=== PATIENT | male | born 1985 | race Caucasian/White ===

== ENCOUNTER 2018-06-17 06:24 | Emergency (ER) | payer BC, SELFPAY ==
[2018-06-17 06:25] VITALS: BP 189/89; PULSE 92; RESP 18; TEMP 36.7; O2SAT 95; BMI 59.9
--- NOTE | 2018-06-17 07:55 | ED.VISSUMM ---
- ER Visit Summary Date of Service: 06/17/18 Chief Complaint: Left eye pain History of Present Illness: The patient is a 32 M with left eye pain for 2 days. The patient has noted watering and mild photophobia. It feels like his eye is scratched. He denies any trauma or foreign bodies. No history of this in the past. No fever or systemic symptoms. No rash noted. He also reports left forearm pain which is worse with carrying. No history of blood clots. Physical Examination: Hypertensive but otherwise vitals unremarkable. Patient sitting in a dark room. HEENT exam grossly unremarkable to inspection. Extraocular structures normal. Pupils round and reactive. Extraocular motion normal. Diffuse conjunctival injection on the left. Mild watering and pus. Skin normal. Left forearm diffusely tender to palpation. Neurovascular intact distally. Good range of motion. Test Results: Emergency Department Course and Treatment: Tetracaine and fluorescein applied to the left eye. Patient had improvement in his pain. Lids everted. No foreign bodies appreciated. Patient has a central corneal abrasion. No dendritic lesions. No other pertinent findings. Treatment Plan: Patient will be treated with E-Mycin ophthalmic ointment. Referred to ophthalmology for follow-up tomorrow. Return if unable to follow-up or any new or worsening issues. I believe his left forearm pain is tendinitis. Nothing to suggest fracture, clot, or more severe pathology. Naproxen as needed for pain. Follow-up with primary care. Also follow-up with primary care for hypertension. He was given a referral. Disposition: Discharged Impression: 1. Left eye pain 2. Hypertension This note was generated with [employer] dictation software. It may contain incorrect words, spelling, and punctuation that were not noted in review of the chart prior to signing ED Disposition - Plan for ED Patient: Chief Complaint: Eye Problem Referrals: Care Physician,No Primary [Primary Care Provider] -
--- NOTE | 2018-06-17 07:59 | ED.DCSUM_ITS ---
- ER Visit Summary Date of Service: 06/17/18 Chief Complaint: Left eye pain History of Present Illness: The patient is a 32 M with left eye pain for 2 days. The patient has noted watering and mild photophobia. It feels like his eye is scratched. He denies any trauma or foreign bodies. No history of this in the past. No fever or systemic symptoms. No rash noted. He also reports left forearm pain which is worse with carrying. No history of blood clots. Physical Examination: Hypertensive but otherwise vitals unremarkable. Patient sitting in a dark room. HEENT exam grossly unremarkable to inspection. Extraocular structures normal. Pupils round and reactive. Extraocular motion normal. Diffuse conjunctival injection on the left. Mild watering and pus. Skin normal. Left forearm diffusely tender to palpation. Neurovascular intact distally. Good range of motion. Test Results: Emergency Department Course and Treatment: Tetracaine and fluorescein applied to the left eye. Patient had improvement in his pain. Lids everted. No foreign bodies appreciated. Patient has a central corneal abrasion. No dendritic lesions. No other pertinent findings. Treatment Plan: Patient will be treated with E-Mycin ophthalmic ointment. Referred to ophthalmology for follow-up tomorrow. Return if unable to follow- up or any new or worsening issues. I believe his left forearm pain is tendinitis. Nothing to suggest fracture, clot, or more severe pathology. Naproxen as needed for pain. Follow-up with primary care. Also follow-up with primary care for hypertension. He was given a referral. Disposition: Discharged Impression: 1. Left eye pain 2. Hypertension This note was generated with [employer] dictation software. It may contain incorrect words, spelling, and punctuation that were not noted in review of the chart prior to signing ED Disposition - Plan for ED Patient: Chief Complaint: Eye Problem Referrals: Care Physician,No Primary [Primary Care Provider] -
--- NOTE | 2018-06-17 07:59 | ED.DEP ---
ED Disposition - Plan for ED Patient: Chief Complaint: Eye Problem Instructions: Corneal Injury Referrals: Luis Lubin MD [STAFF PHYSICIAN] - As soon as possible Salas Guerra MD [STAFF PHYSICIAN] -
[2018-06-17] MEDS: Erythromycin Base 1 OPTH.TUBE 1 APPLIC LEFT EYE (08:05)
[2018-06-17 08:07] VITALS: PULSE 84; RESP 18; O2SAT 92
== END 2018-06-17 08:08 | disposition home or self-care (01) ==
LOC: ED 07:45
PROVIDERS: Emergency Provider Emergency Medicine
DX: H57.12 Ocular pain, left eye (principal); I10 Essential (primary) hypertension; M79.632 Pain in left forearm; S05.02XA Injury of conjunctiva and corneal abrasion without foreign body, left eye, initial encounter; X58.XXXA Exposure to other specified factors, initial encounter; Y93.9 Activity, unspecified; Y92.9 Unspecified place or not applicable; J45.909 Unspecified asthma, uncomplicated
CPT/HCPCS: 99283

== ENCOUNTER 2018-08-14 06:59 | Observation (INO) | payer BC, SELFPAY ==
[2018-08-14] VITALS (12 sets, daily range): BP systolic 146–173; BP diastolic 63–90; PULSE 91–109; RESP 16–32; TEMP 36.6–37.2; O2SAT 90–100; BMI 61.3; BMI 60.9
--- NOTE | 2018-08-14 07:13 | RAD_ITS ---
STUDY: X-RAY CHEST REASON FOR EXAM: Male, 32 years old. Chest pain, shortness of breath and cough. TECHNIQUE: Single AP portable view of the chest. COMPARISON: Comparison is made with prior study dated August 20, 2017. FINDINGS: EKG electrodes are seen. The lungs are clear and expanded. There is no demonstrated pleural abnormality. Normal size heart. Normal mediastinum and kenneth. Normal visualized pulmonary arteries. Normal visualized aortic arch and descending thoracic aorta. Normal visualized thoracic spine. Normal visualized ribs, clavicles, and shoulders. There is no demonstrated abnormality of the visualized soft tissue structures of the upper abdomen. RAD/Chest 1 View (Portable) IMPRESSION: Normal x-ray examination of the chest. Electronically Signed: Ki Kingsley MD at 8:56 EST Tel [phone], Service support ,
--- NOTE | 2018-08-14 07:13 | EKG12_ITS ---
Test Reason : COUGH Blood Pressure : / mmHG Vent. Rate : 095 BPM Atrial Rate : 095 BPM P-R Int : 168 ms QRS Dur : 096 ms QT Int : 366 ms P-R-T Axes : 065 107 040 degrees QTc Int : 459 ms Normal sinus rhythm Rightward axis Borderline ECG Confirmed by KYLE NARAYAN, ABRAHAM ([id number]), newspaper photo editor FLAVIO BRANDT ([id number]) on 08/16/2018 3:21:28 PM Referred By: PATRICK Confirmed By:ABRAHAM WRIGHT MD
--- NOTE | 2018-08-14 07:16 | ED.VISSUMM ---
- ER Visit Summary Date of Service: 08/14/18 Chief Complaint: Not feeling well History of Present Illness: The patient is a 32 M with the gradual worsening of his symptoms over the last 5 days. He has shortness of breath, cough, chest pain, looks pale, reports body aches, subjective fever, and feels like he might pass out. He has never felt this way before. He is taking [id number] remedies with minimal relief. Reports a history of asthma. Denies any history of ACS, PE, or aortic pathology. Non-smoker. Physical Examination: Afebrile. Heart rate 106 and respiratory rate 26. 91% on room air. BMI 61.3. Appears unwell but not toxic or in distress. HEENT exam unremarkable. Heart tachycardic but regular. Wheezing in all bailey with expiration. Extremities nontender with no edema. Skin normal in color without rash. Alert and oriented. Moves all extremities. Normal ambulation. Test Results: EKG, labs, and chest x-ray pending. Emergency Department Course and Treatment: Patient was placed on a monitor. Nasal cannula oxygen and IV placed. He was treated with Solu-Medrol and nebulizer treatments while awaiting results. White count 14, potassium 3.4, glucose 110, troponin normal. Chest x-ray shows a normal exam. Patient ambulated on room air. He was feeling better after his breathing treatment but he was 86% on room air and his heart rate was 113. Because of his hypoxia, I called the hospitalist to admit. Treatment Plan: As above Disposition: Admission to [facility] Impression: 1. Asthma exacerbation 2. hypoxia This note was generated with [employer] dictation software. It may contain incorrect words, spelling, and punctuation that were not noted in review of the chart prior to signing ED Disposition - Plan for ED Patient: Chief Complaint: Cough Referrals: Care Physician,No Primary [Primary Care Provider] -
[2018-08-14] MEDS: Albuterol 2.5 MG/3 ML VIAL.NEB. INHALATION ×2 (07:33→13:15)
[2018-08-14] MEDS: Ipratropium/Albuterol Sulfate 3 ML AMPUL.NEB INHALATION (07:34)
[2018-08-14] MEDS: 0.9% Normal Saline 1,000 ML 1000 ML IV (07:42)
[2018-08-14] MEDS: MethylPREDNISolone 125 MG/2 ML Vial IV (07:42)
[2018-08-14 07:48] LABS: Absolute Lymphocyte Count 2.38 X10^3/ul (0.83-4.51); Absolute Neutrophil Count 9.8 X10^3/uL (2.0-7.7); Basophil# 0.03 X10^3/uL; Basophil% 0.2 % (0-1); Eosinophil# 0.63 X10^3/uL; Eosinophils% 4.5 % (0-5); Hematocrit 42.3 % (40-54); Hemoglobin 13.1 g/dl (13.0-16.5); Lymphocyte # 2.38 X10^3/ul (4.0); Mean Corpuscular Hgb 24.3 pg (27.0-32.0); Mean Corpuscular Volume 78.6 fL (80-94); Mean Platelet Vol. 9.5 fl (6.2-12.0); Monocyte# 1.08 X10^3/uL; Monocyte% 7.7 % (0-10); Neutrophil # 9.83 X10^3/uL (2.7-7.7); Neutrophil % 70.4 % (47-70); Platelet Count 376 K/mm3 (150-450); Red Blood Count 5.38 M/mm3 (4.6-6.2)
[2018-08-14 07:49] LABS: POSITIVE COUNT NO; POSITIVE DIFFERENTIAL NO; POSITIVE MORPHOLOGY NO
[2018-08-14 08:03] LABS: Anion Gap 6 (5-15); BUN 9 mg/dL (7-18); BUN/Creat Ratio 10.4 RATIO (10-20); Calcium,Total 8.5 mg/dL (8.5-10.1); Chloride 101 mmol/L (98-107); Creatinine, Serum 0.87 mg/dL (0.70-1.30); EST Glomerular Filtration Rate 108 mL/min (>60); Est Glom Filt Rate - Afr Amer 131 mL/min (>60); Estimated Creatinine Clearance 107.02 ml/min; Glucose 110 mg/dL (74-106); Potassium 3.4 mmol/L (3.5-5.1); Sodium Level 137 mmol/L (136-145)
--- NOTE | 2018-08-14 09:29 | ED.RN ---
patient ambulated without oxygen and o2 sat dropped to 86-97%. pt also became tachy and heart rate increased to 116
--- NOTE | 2018-08-14 11:04 | PCM.CONS.GEN ---
Reason for Consult Date of Consultation: 08/14/18 Reason for Consultation: Shortness of breath/asthma exacerbation History of Present Illness: The patient is a 32-year-old male, with a history as outlined below, who presented to the emergency department on August 14 with generalized malaise, fatigue, shortness of breath and cough. The patient reports that his symptoms initially began this past Monday. His cough is essentially nonproductive in nature. Shortness of breath has progressively worsened over the last 2-3 days. He is a lifelong non-smoker, but does report that he was initially diagnosed with asthma as a child. He does not currently utilize any inhalers at his baseline, nor does he utilize supplemental oxygen. He does report a history of obstructive sleep apnea, based upon a polysomnogram completed 2-3 years ago. However, the patient currently reports that he is noncompliant with the use of nocturnal PAP therapy. On presentation to the emergency department, the patient was noted to be afebrile and hemodynamically stable. He was initially saturating 91% on room air. Initial laboratory evaluation revealed a mildly elevated white blood cell count of 14,000. Chemistry profile was notable only for a potassium of 3.4. Troponin was negative. Plain film chest x-ray revealed no acute cardiopulmonary process. The patient was noted to have wheezing throughout bilateral lung bailey in the emergency department. Per documentation by the ED, the patient was reportedly hypoxic with ambulating to 86%. The patient received supplemental IV fluid hydration, aerosol treatments and IV steroids. He was subsequently admitted to the medical surgical floor for ongoing management. Past Medical History Allergies Penicillins Allergy (Unknown, Verified 08/14/18 07:00) Unknown Home Medications: Ambulatory Orders Medication Instructions Recorded NK 08/14/18 Naproxen Sodium [Aleve] 220 mg PO Q8H PRN PRN 08/14/18 Smoking Status: Never smoker - *Family History Maternal History Items: No pertinent history Paternal History Items: COPD, Diabetes Review of Systems Constitutional: Reports: Malaise, Fatigue Eyes: Denies: Blurred vision, Double vision HEENT: Reports: Sore Throat Cardiovascular: Reports: Chest Tightness Respiratory: Reports: Cough, Shortness of Breath. Denies: Sputum production Gastrointestinal: Denies: Abdominal Pain, Nausea, Vomiting Genitourinary: Denies: Dysuria Musculoskeletal: Denies: Joint Pain, Joint Tenderness Skin: Denies: Rash, Wounds Neurological: Denies: Numbness, Tingling, Focal weakness Psychiatric: Denies: Anxiety, Depression, Homicidal Ideations, Suicidal Ideations Hematologic/ Lymphatic: Denies: Easy Bruising, Easy Bleeding Patient Problems: Active and Suspected Problems Shortness of breath (Acute) Objective: The patient's most recent lab work, culture data and imaging studies have all been personally reviewed. - Physical Exam General: Alert, Oriented x3, Cooperative, No apparent distress HEENT: Atraumatic, PERRLA, Normocephalic Oral: No Gingival or Mucosal Lesions/ Ulcerations Neck: Supple, No Nodes, Trachea Midline, - - Large neck circumference Lungs: No rhonchi, No wheeze, No rales, Diminished Cardiovascular: Regular rate, Regular Rhythm, Normal S1, Normal S2, No murmurs Abdomen: Bowel Sounds Present, Soft, Non Tender, Obese Extremities: No clubbing, No cyanosis, No edema, Capillary Refill Less than 3 Seconds Skin: No rashes, No breakdown Musculoskeletal: No Tenderness to Palpation of Joints or Extremities, No Muscle Wasting Lymphatic: No Cervical, Supraclavicular, or Inguinal Adenopathy Neurological: Cranial nerves II-XII grossly intact, Neuro grossly intact Psych/Mental Status: Alert and oriented to time, place, person, mood and affect Vital Signs Temp Pulse Resp BP Pulse Ox 37.2 C 91 27 H 156/90 H 100 08/14/18 07:01 08/14/18 10:57 08/14/18 10:57 08/14/18 10:57 08/14/18 10:57 Oxygen Flow Rate (L/min) 3 Oxygen Delivery Method Nasal Cannula Weight: 368 lb 9.806 oz Body Mass Index (BMI) 61.3 Finger Stick Blood Glucose 104 Laboratory Tests Past 24 Hrs 08/14/18 08/14/18 07:36 07:36 WBC 14.0 H RBC 5.38 Hgb 13.1 Hct 42.3 MCV 78.6 L MCH 24.3 L MCHC 31.0 L RDW 15.0 H RDW Differential 43.0 Plt Count 376 MPV 9.5 Immature Gran % (Auto) 0.200 Neut % (Auto) 70.4 H Lymph % (Auto) 17.0 L [place] % (Auto) 7.7 Eos % (Auto) 4.5 Baso % (Auto) 0.2 Absolute Neuts (auto) 9.8 H Absolute Lymphs (auto) 2.38 Total Counted Not Reportable Sodium 137 Potassium 3.4 L Chloride 101 Carbon Dioxide 30.0 Anion Gap 6 BUN 9 Creatinine 0.87 Estim Creat Clear Calc 107.02 Est GFR (MDRD) Af Amer 131 Est GFR (MDRD) Non-Af 108 BUN/Creatinine Ratio 10.4 Glucose 110 H Calcium 8.5 Troponin I < 0.015 Clinical Impression(s) from Imaging Studies Chest X-Ray 08/14/18 07:13 IMPRESSION: Normal x-ray examination of the chest. Electronically Signed: Ki Kingsley MD at 8:56 EST Tel [phone], Service support , Assessment/Plan All Active Problems Shortness of breath (Acute) RECOMMENDATIONS: 1. Continue scheduled bronchodilators. 2. Transition from IV steroids to prednisone 40 mg daily by mouth with plans for 5-day burst. 3. Check respiratory viral panel. 4. Wean supplemental oxygen to maintain saturations at or above 90%. 5. Encourage incentive spirometer use. 6. Mobilize patient prior to consideration for discharge from the hospital. 7. Outpatient pulmonary follow-up is recommended to further optimize the patient's asthma and obstructive sleep apnea. IMPRESSIONS: 1. Acute hypoxic respiratory insufficiency Potentially related to underlying asthma with exacerbation. The patient was reported to be wheezing in the emergency department. However, upon my examination, his lungs were clear bilaterally. He did, nevertheless, report improvement in his dyspnea following the nebulizer treatment. Would plan to check a full respiratory viral panel. Continue scheduled bronchodilators for now. There is no need for IV steroids. Place patient on prednisone 40 mg daily with plans for a 5-day prednisone burst. Wean supplemental oxygen to maintain saturations at or above 90%. Encourage incentive spirometer use. Perform walking oximetry study prior to consideration for discharge from the hospital. The patient should ideally follow up in the pulmonary medicine clinic so that his questionable history of asthma can be further worked up. 2. Known history of obstructive sleep apnea of unknown severity The patient reports that his last polysomnogram was 2-3 years ago. He is currently noncompliant with use of nocturnal Pap therapy. Again, recommend follow-up in the pulmonary medicine clinic so that this issue can be addressed further, and the patient restarted on nocturnal noninvasive positive pressure support. 3. Morbid obesity Complicates care, management, recovery and prognosis. Weight loss through dietary modification and a graded exercise regimen is strongly encouraged. This note was generated with [employer] dictation software. It may contain incorrect words, spelling, and punctuation that were not noted in checking the note before signing. Code Visit Inpatient E&M: 36402 Init Hosp L3
--- NOTE | 2018-08-14 11:08 | CON.PCM_ITS ---
Reason for Consult Date of Consultation: 08/14/18 Reason for Consultation: Shortness of breath/asthma exacerbation History of Present Illness: The patient is a 32-year-old male, with a history as outlined below, who presented to the emergency department on August 14 with generalized malaise, fa tigue, shortness of breath and cough. The patient reports that his symptoms initially began this past Monday. His cough is essentially nonproductive in nature. Shortness of breath has progressively worsened over the last 2-3 days. He is a lifelong non-smoker, but does report that he was initially diagnosed with asthma as a child. He does not currently utilize any inhalers at his baseline, nor does he utilize supplemental oxygen. He does report a history of obstructive sleep apnea, based upon a polysomnogram completed 2-3 years ago. However, the patient currently reports that he is noncompliant with the use of nocturnal PAP therapy. On presentation to the emergency department, the patient was noted to be afebrile and hemodynamically stable. He was initially saturating 91% on room a ir. Initial laboratory evaluation revealed a mildly elevated white blood cell count of 14,000. Chemistry profile was notable only for a potassium of 3.4. Troponin was negative. Plain film chest x-ray revealed no acute cardiopulmonary process. The patient was noted to have wheezing throughout bilateral lung bailey in the emergency department. Per documentation by the ED, the patient was reportedly hypoxic with ambulating to 86%. The patient received supplemental IV fluid hydration, aerosol treatments and IV steroids. He was subsequently admitted to the medical surgical floor for ongoing management. Past Medical History Allergies Penicillins Allergy (Unknown, Verified 08/14/18 07:00) Unknown Home Medications: Ambulatory Orders Medication Instructions Recorded NK 08/14/18 Naproxen Sodium [Aleve] 220 mg PO Q8H PRN PRN 08/14/18 Smoking Status: Never smoker - *Family History Maternal History Items: No pertinent history Paternal History Items: COPD, Diabetes Review of Systems Constitutional: Reports: Malaise, Fatigue Eyes: Denies: Blurred vision, Double vision HEENT: Reports: Sore Throat Cardiovascular: Reports: Chest Tightness Respiratory: Reports: Cough, Shortness of Breath. Denies: Sputum production Gastrointestinal: Denies: Abdominal Pain, Nausea, Vomiting Genitourinary: Denies: Dysuria Musculoskeletal: Denies: Joint Pain, Joint Tenderness Skin: Denies: Rash, Wounds Neurological: Denies: Numbness, Tingling, Focal weakness Psychiatric: Denies: Anxiety, Depression, Homicidal Ideations, Suicidal Ideations Hematologic/ Lymphatic: Denies: Easy Bruising, Easy Bleeding Patient Problems: Active and Suspected Problems Shortness of breath (Acute) Objective: The patient's most recent lab work, culture data and imaging studies have all been personally reviewed. - Physical Exam General: Alert, Oriented x3, Cooperative, No apparent distress HEENT: Atraumatic, PERRLA, Normocephalic Oral: No Gingival or Mucosal Lesions/ Ulcerations Neck: Supple, No Nodes, Trachea Midline, - - Large neck circumference Lungs: No rhonchi, No wheeze, No rales, Diminished Cardiovascular: Regular rate, Regular Rhythm, Normal S1, Normal S2, No murmurs Abdomen: Bowel Sounds Present, Soft, Non Tender, Obese Extremities: No clubbing, No cyanosis, No edema, Capillary Refill Less than 3 Seconds Skin: No rashes, No breakdown Musculoskeletal: No Tenderness to Palpation of Joints or Extremities, No Muscle Wasting Lymphatic: No Cervical, Supraclavicular, or Inguinal Adenopathy Neurological: Cranial nerves II-XII grossly intact, Neuro grossly intact Psych/Mental Status: Alert and oriented to time, place, person, mood and affect Vital Signs Temp Pulse Resp BP Pulse Ox 37.2 C 91 27 H 156/90 H 100 08/14/18 07:01 08/14/18 10:57 08/14/18 10:57 08/14/18 10:57 08/14/18 10:57 Oxygen Flow Rate (L/min) 3 Oxygen Delivery Method Nasal Cannula Weight: 368 lb 9.806 oz Body Mass Index (BMI) 61.3 Finger Stick Blood Glucose 104 Laboratory Tests Past 24 Hrs 08/14/18 08/14/18 07:36 07:36 WBC 14.0 H RBC 5.38 Hgb 13.1 Hct 42.3 MCV 78.6 L MCH 24.3 L MCHC 31.0 L RDW 15.0 H RDW Differential 43.0 Plt Count 376 MPV 9.5 Immature Gran % (Auto) 0.200 Neut % (Auto) 70.4 H Lymph % (Auto) 17.0 L [place] % (Auto) 7.7 Eos % (Auto) 4.5 Baso % (Auto) 0.2 Absolute Neuts (auto) 9.8 H Absolute Lymphs (auto) 2.38 Total Counted Not Reportable Sodium 137 Potassium 3.4 L Chloride 101 Carbon Dioxide 30.0 Anion Gap 6 BUN 9 Creatinine 0.87 Estim Creat Clear Calc 107.02 Est GFR (MDRD) Af Amer 131 Est GFR (MDRD) Non-Af 108 BUN/Creatinine Ratio 10.4 Glucose 110 H Calcium 8.5 Troponin I < 0.015 Clinical Impression(s) from Imaging Studies Chest X-Ray 08/14/18 07:13 IMPRESSION: Normal x-ray examination of the chest. Electronically Signed: Ki Kingsley MD at 8:56 EST Tel [phone], Service support , Assessment/Plan All Active Problems Shortness of breath (Acute) RECOMMENDATIONS: 1. Continue scheduled bronchodilators. 2. Transition from IV steroids to prednisone 40 mg daily by mouth with plans for 5-day burst. 3. Check respiratory viral panel. 4. Wean supplemental oxygen to maintain saturations at or above 90%. 5. Encourage incentive spirometer use. 6. Mobilize patient prior to consideration for discharge from the hospital. 7. Outpatient pulmonary follow-up is recommended to further optimize the patient's asthma and obstructive sleep apnea. IMPRESSIONS: 1. Acute hypoxic respiratory insufficiency Potentially related to underlying asthma with exacerbation. The patient was reported to be wheezing in the emergency department. However, upon my examination, his lungs were clear bilaterally. He did, nevertheless, report improvement in his dyspnea following the nebulizer treatment. Would plan to check a full respiratory viral panel. Continue scheduled bronchodilators for now. There is no need for IV steroids. Place patient on prednisone 40 mg daily with plans for a 5-day prednisone burst. Wean supplemental oxygen to maintain saturations at or above 90%. Encourage incentive spirometer use. Perform walking oximetry study prior to consideration for discharge from the hospital. The patient should ideally follow up in the pulmonary medicine clinic so that his questionable history of asthma can be further worked up. 2. Known history of obstructive sleep apnea of unknown severity The patient reports that his last polysomnogram was 2-3 years ago. He is currently noncompliant with use of nocturnal Pap therapy. Again, recommend follow-up in the pulmonary medicine clinic so that this issue can be addressed further, and the patient restarted on nocturnal noninvasive positive pressure support. 3. Morbid obesity Complicates care, management, recovery and prognosis. Weight loss through dietary modification and a graded exercise regimen is strongly encouraged. This note was generated with [employer] software. It may contain incorrect words, spelling, and punctuation that were not noted in checking the note before signing. Code Visit Inpatient E&M: 57340 Init Hosp L3
--- NOTE | 2018-08-14 11:11 | ED.RN ---
THIS RN ATTEMPTED TO WALK PATIENT, BUT PATIENT WAS UNABLE. PT WAS ABLE TO SWING LEGS TO SIDE OF BED AND STAND, AND WAS ABLE TO BEAR WEIGHT FOR A FEW SECONDS WITH SEVERE PAIN. PT UNABLE TO WALK. PHYSICIAN NOTIFIED
[2018-08-14] MEDS: Acetaminophen 325 MG Tablet 650 MG PO ×2 (12:46→21:57)
[2018-08-14] MEDS: 0.9% Normal Saline 1,000 ML 100 ML IV ×2 (12:48→21:56)
[2018-08-14] MEDS: 0.9% NaCl Peripheral Flush Adult/Peds IV ×2 (14:48→22:06)
--- NOTE | 2018-08-14 16:54 | PCM.HP.STD ---
Problem List (1) Shortness of breath Status: Acute History of Present Illness Date of Admission: 08/14/18 Chief Complaint: Shortness of breath The patient is a 32 year old M who was seen in the emergency room at [facility] with a chief complaint of shortness of breath times 24 hours. Patient states that he noticed an increased shortness of breath today while at work, he denied any chest pain, he denied any fevers, patient stated he was diaphoretic. Patient also admits to green sputum production today. Patient has a history of asthma that was diagnosed when the patient was young-patient states that he remembers using an inhaler when he was 11 years old. Patient does not currently use an inhaler. Workup in the emergency room included a chest x-ray which did not show any abnormalities, patient's white blood cell count was elevated at 14,000, chemistry profile was remarkable for a potassium of 3.4, patient's pulse ox on ambulation while on room air was 86% in the emergency room. Patient will be placed into observation status for acute exacerbation of asthma, I will have pulmonary medicine see the patient, patient will be given IV Solu-Medrol and aerosol treatments and his pulse ox will be monitored. Past Medical History Allergies Penicillins Allergy (Unknown, Verified 08/14/18 07:00) Unknown Home Medications: Ambulatory Orders Medication Instructions Recorded NK 08/14/18 Naproxen Sodium [Aleve] 220 mg PO Q8H PRN PRN 08/14/18 Surgical History: noncontributory Psychiatric History: No pertinent psych hx Lives: Spouse/ Significant Other Smoking Status: Never smoker Tobacco Use: Non-smoker Alcohol: Occasional Drugs: None - *Family History Maternal History Items: No pertinent history Paternal History Items: COPD, Diabetes Review of Systems Constitutional: Reports: Weakness, Fatigue. Denies: Anorexia, Chills, Fever, Night Sweats, Weight Change Eyes: Denies: Blurred vision, Cataracts, Conjunctivae Inflammation, Double vision, Drainage HEENT: Denies: Difficulty Hearing, Difficulty Swallowing, Dysphasia, Ear Pain, Eye Pain, Head Aches, Hearing Changes, Nasal bleeding, Nasal Congestion Cardiovascular: Denies: Chest Pain, Claudication, Chest Pressure, Chest Tightness, Edema, Heaviness, Light Headedness, Orthopnea, Palpitations, Paroxysmal Noc. Dyspnea, Syncope Respiratory: Reports: Cough, Shortness of Breath, Shortness of breath at rest, Shortness of breath upon exertion, Sputum production, Wheezing. Denies: Hemoptysis Gastrointestinal: Denies: Abdominal Pain, Constipation, Diarrhea, Hematemesis, Hematochezia, Nausea, Melena, Vomiting Genitourinary: Denies: Dysuria, Frequency, Hematuria, Hesitancy, Incontinence, Nocturia, Urgency Musculoskeletal: Denies: Back Pain, Foot Pain, Hand Pain, Joint Pain, Joint stiffness, Joint swelling, Joint Tenderness, Leg Pain Skin: Denies: Dryness, Jaundice, Pruritis, Rash Neurological: Denies: Blurred vision, Double vision, Change in Speech, Slurred speech, Difficulty swallowing, Focal weakness, Headaches, Incoordination, Numbness, Tingling Psychiatric: Denies: Anxiety, Depression, Homicidal Ideations, Suicidal Ideations Endocrine: Denies: Change in Body Habitus, Heat/ Cold Intolerance, Polydipsia, Polyuria, Hx of Irradiation Hematologic/ Lymphatic: Denies: Adenopathy, Anemia, Easy Bruising, Easy Bleeding, Petechiae, Purpura VTE Information - Inpt Only VTE Present on Admission: No VTE Mechan Device Prophylaxis: SCD's VTE Pharm Prophylaxis ordered?: No Reason prophylaxis not ordered:: Treatment Not Indicated Patient Problems: Active and Suspected Problems Shortness of breath (Acute) - Physical Exam General: Alert, Oriented x3, Cooperative, No apparent distress, Well developed, Well nourished HEENT: Atraumatic, PERRLA, EOMI, Normocephalic Oral: Moist Mucosa Neck: Supple, No JVD, Negative Carotid Bruits, No Nuchal Rigidity, Trachea Midline, Thyroid Normal Size and Texture Lungs: No rhonchi, No rales, Diminished, Wheezes - Expiratory wheezes are scattered bilaterally Cardiovascular: Regular rate, Regular Rhythm, Normal S1, Normal S2, No murmurs, PMI Normal, No rub noted, No Gallop Abdomen: Bowel Sounds Present, Soft, Non Tender, Non-Distended, Obese Extremities: No clubbing, No cyanosis, No edema, Capillary Refill Less than 3 Seconds Skin: No rashes, No breakdown Musculoskeletal: No Tenderness to Palpation of Joints or Extremities Neurological: Cranial nerves II-XII grossly intact, Neuro grossly intact, Sensory exam intact to light touch and pain Psych/Mental Status: Normal Affect, Appropriate, Alert and oriented to time, place, person, mood and affect Vital Signs Temp Pulse Resp BP Pulse Ox 98.5 F 109 H 20 H 146/66 H 94 08/14/18 14:40 08/14/18 14:40 08/14/18 14:40 08/14/18 14:40 08/14/18 14:40 Oxygen Flow Rate (L/min) 3 Oxygen Delivery Method Nasal Cannula Weight: 166 kg Body Mass Index (BMI) 60.9 Finger Stick Blood Glucose 104 Laboratory Tests Past 24 Hrs 08/14/18 08/14/18 07:36 07:36 WBC 14.0 H RBC 5.38 Hgb 13.1 Hct 42.3 MCV 78.6 L MCH 24.3 L MCHC 31.0 L RDW 15.0 H RDW Differential 43.0 Plt Count 376 MPV 9.5 Immature Gran % (Auto) 0.200 Neut % (Auto) 70.4 H Lymph % (Auto) 17.0 L [place] % (Auto) 7.7 Eos % (Auto) 4.5 Baso % (Auto) 0.2 Absolute Neuts (auto) 9.8 H Absolute Lymphs (auto) 2.38 Total Counted Not Reportable Sodium 137 Potassium 3.4 L Chloride 101 Carbon Dioxide 30.0 Anion Gap 6 BUN 9 Creatinine 0.87 Estim Creat Clear Calc 107.02 Est GFR (MDRD) Af Amer 131 Est GFR (MDRD) Non-Af 108 BUN/Creatinine Ratio 10.4 Glucose 110 H Calcium 8.5 Troponin I < 0.015 Assessment/Plan All Active Problems Shortness of breath (Acute) #1 acute exacerbation of asthma-patient was put into observation status on MedSurg 2, he will receive IV Solu-Medrol, aerosol treatments, he will be seen in consultation by pulmonary medicine. #2 obstructive sleep apnea-patient states he has a history of obstructive sleep apnea but has been noncompliant with using CPAP, he states his CPAP is dirty and he has not done anything about it and has not used it in quite some time. States he was diagnosed with obstructive sleep apnea approximately 3 years ago #3 morbid obesity #4 bronchitis-pulmonary medicine ordered a respiratory panel on the patient, I will start him on Zithromax 500 mg daily starting tonight #5 leukocytosis-etiology unclear-patient's CBC will be repeated tomorrow but most likely will show an increase WBCs perhaps due to the administration of IV Solu-Medrol. Code Visit OBSV E&M: 24246 Initial observation care L3
[2018-08-15 01:13] VITALS: PULSE 98; RESP 22
[2018-08-15] MEDS: Albuterol 2.5 MG/3 ML VIAL.NEB. INHALATION ×2 (01:13→06:59)
[2018-08-15 02:27] VITALS: BP 138/88; PULSE 97; RESP 20; TEMP 36.8; O2SAT 94
[2018-08-15 05:54] LABS: Absolute Lymphocyte Count 1.24 X10^3/ul (0.83-4.51); Absolute Neutrophil Count 19.1 X10^3/uL (2.0-7.7); Basophil# 0.01 X10^3/uL; Hematocrit 45.3 % (40-54); Hemoglobin 13.7 g/dl (13.0-16.5); Lymphocyte # 1.24 X10^3/ul (4.0); Lymphocyte % 5.8 % (19-41); Mean Corp Hgb Conc 30.2 g/gl (32-36); Mean Corpuscular Hgb 24.6 pg (27.0-32.0); Mean Corpuscular Volume 81.3 fL (80-94); Mean Platelet Vol. 9.9 fl (6.2-12.0); Monocyte# 0.97 X10^3/uL; Monocyte% 4.5 % (0-10); Neutrophil # 19.06 X10^3/uL (2.7-7.7); Neutrophil % 89.3 % (47-70); Platelet Count 426 K/mm3 (150-450); RBC Distribution Width CV 15.1 % (11.6-14.6); RBC Distribution Width SD 45.5 fl (35.1-43.9); Red Blood Count 5.57 M/mm3 (4.6-6.2); White Blood Count 21.4 K/mm3 (4.4-11.0)
[2018-08-15 06:01] LABS: POSITIVE COUNT NO; POSITIVE DIFFERENTIAL NO; POSITIVE MORPHOLOGY NO
[2018-08-15 08:30] VITALS: BP 149/82; PULSE 99; RESP 20; TEMP 36.7; O2SAT 94
[2018-08-15] MEDS: predniSONE 20 MG Tablet 40 MG PO (08:41)
--- NOTE | 2018-08-15 08:55 | PN_ITS ---
Patient Problems: Active and Suspected Problems Shortness of breath (Acute) Subjective: The patient was seen and examined at the bedside this morning. Events from the last 24 hours have been reviewed. The patient is currently afebrile, hemodynamically stable and maintaining appropriate oxygen saturations on room air. The patient reports overall improvement in his breathing quality. Objective: The patient's most recent lab work, culture data and imaging studies have all been personally reviewed. Respiratory viral panel was positive for rhinovirus. - Physical Exam General: Alert, Cooperative, No apparent distress HEENT: Atraumatic, PERRLA, Normocephalic Oral: No Gingival or Mucosal Lesions/ Ulcerations Neck: Supple, No Nodes, Trachea Midline Lungs: No rhonchi, No wheeze, No rales, Diminished Cardiovascular: Regular rate, Regular Rhythm, Normal S1, Normal S2, No murmurs Abdomen: Bowel Sounds Present, Soft, Non Tender, Obese Extremities: No clubbing, No cyanosis, No edema Skin: No breakdown Musculoskeletal: No Tenderness to Palpation of Joints or Extremities, No Muscle Wasting Lymphatic: No Cervical, Supraclavicular, or Inguinal Adenopathy Neurological: Cranial nerves II-XII grossly intact, Neuro grossly intact Psych/Mental Status: Alert and oriented to time, place, person, mood and affect Vital Signs Temp Pulse Resp BP Pulse Ox 36.7 C 99 20 H 149/82 H 94 08/15/18 08:30 08/15/18 08:30 08/15/18 08:30 08/15/18 08:30 08/15/18 08:30 Oxygen Flow Rate (L/min) 2 Oxygen Delivery Method Room Air Weight: 365 lb 15.477 oz Body Mass Index (BMI) 60.9 Finger Stick Blood Glucose 104 Intake and Output for Last 24 Hours 08/13/18 08/14/18 08/15/18 23:59 23:59 23:59 Intake Total 1401 / 1401 250 / 250 Balance 1401 / 1401 250 / 250 Microbiology Past 72 Hours 08/14/18 13:14 Respiratory Panel (PCR) - Final Mucosa - Nose Rhinovirus Laboratory Tests Past 24 Hrs 08/15/18 05:20 WBC 21.4 H RBC 5.57 Hgb 13.7 Hct 45.3 MCV 81.3 MCH 24.6 L MCHC 30.2 L RDW 15.1 H RDW Differential 45.5 H Plt Count 426 MPV 9.9 Immature Gran % (Auto) 0.400 Neut % (Auto) 89.3 H Lymph % (Auto) 5.8 L [place] % (Auto) 4.5 Eos % (Auto) 0.0 Baso % (Auto) 0.0 Absolute Neuts (auto) 19.1 H Absolute Lymphs (auto) 1.24 Total Counted Not Reportable Labs (Last 48 Hours) 08/14/18 08/14/18 08/15/18 07:36 07:36 05:20 WBC 14.0 H 21.4 H RBC 5.38 5.57 Hgb 13.1 13.7 Hct 42.3 45.3 MCV 78.6 L 81.3 MCH 24.3 L 24.6 L MCHC 31.0 L 30.2 L RDW 15.0 H 15.1 H RDW Differential 43.0 45.5 H Plt Count 376 426 MPV 9.5 9.9 Immature Gran % (Auto) 0.200 0.400 Neut % (Auto) 70.4 H 89.3 H Lymph % (Auto) 17.0 L 5.8 L [place] % (Auto) 7.7 4.5 Eos % (Auto) 4.5 0.0 Baso % (Auto) 0.2 0.0 Absolute Neuts (auto) 9.8 H 19.1 H Absolute Lymphs (auto) 2.38 1.24 Total Counted Not Reportable Not Reportable Sodium 137 Potassium 3.4 L Chloride 101 Carbon Dioxide 30.0 Anion Gap 6 BUN 9 Creatinine 0.87 Estim Creat Clear Calc 107.02 Est GFR (MDRD) Af Amer 131 Est GFR (MDRD) Non-Af 108 BUN/Creatinine Ratio 10.4 Glucose 110 H Calcium 8.5 Troponin I < 0.015 Microbiology 08/14/18 13:14 Mucosa - Nose Respiratory Panel (PCR) - Final Rhinovirus Clinical Impression(s) from Imaging Studies Chest X-Ray 08/14/18 07:13 IMPRESSION: Normal x-ray examination of the chest. Electronically Signed: Ki Kingsley MD at 8:56 EST Tel [phone], Service support , Medical Necessity - Tobacco Use Smoking Status: Never smoker Tobacco Use: Non-smoker Assessment/Plan All Active Problems Shortness of breath (Acute) RECOMMENDATIONS: 1. Continue scheduled bronchodilators. 2. Transition from IV steroids to prednisone 40 mg daily by mouth with plans for 5-day burst. 3. Encourage incentive spirometer use. 4. Perform walking oximetry study prior to consideration for discharge from the hospital. 5. Outpatient pulmonary follow-up is recommended to further optimize the patient's asthma and obstructive sleep apnea, within 2 weeks of his discharge. IMPRESSIONS: 1. Acute hypoxic respiratory insufficiency, likely secondary to asthma exacerbation due to rhinovirus URI Potentially related to underlying asthma with exacerbation. The patient was reported to be wheezing in the emergency department. He did, nevertheless, report improvement in his dyspnea following the nebulizer treatment. Continue scheduled bronchodilators for now. There is no need for IV steroids. Place patient on prednisone 40 mg daily with plans for a 5-day prednisone burst. Wean supplemental oxygen to maintain saturations at or above 90%. Encourage incentive spirometer use. Perform walking oximetry study prior to consideration for discharge from the hospital. The patient should ideally follow up in the pulmonary medicine clinic so that his questionable history of asthma can be further worked up. Please schedule a follow-up office visit within 2 weeks of his discharge from the hospital. 2. Known history of obstructive sleep apnea of unknown severity The patient reports that his last polysomnogram was 2-3 years ago. He is currently noncompliant with use of nocturnal Pap therapy. Again, recommend follow-up in the pulmonary medicine clinic so that this issue can be addressed further, and the patient restarted on nocturnal noninvasive positive pressure support. 3. Morbid obesity Complicates care, management, recovery and prognosis. Weight loss through dietary modification and a graded exercise regimen is strongly encouraged. This note was generated with [employer] software. It may contain incorrect words, spelling, and punctuation that were not noted in checking the note before signing. Code Visit Inpatient E&M: 09830 Subs Hosp L2
--- NOTE | 2018-08-15 11:12 | DCINST_ITS ---
- Discharge Diagnoses Current Active Problems: Current Active and Chronic Problems Shortness of breath (Acute) You will use the following diet at home:: No restrictions Your food should be the consistency of: Regular Your liquids should be the consistency of: Regular/Thin Discharge Activity: Return to Normal Activity Return to work on:: 08/20/18 Weight Bearing Status: Full weight bearing Allergies/Adverse Reactions: Allergies Penicillins Allergy (Unknown, Verified 08/14/18 07:00) Unknown Medications to take at Discharge Naproxen Sodium [Aleve] 220 mg PO Q8H PRN PRN 08/14/18 Acetaminophen [Tylenol Tablet] 650 mg PO Q6H PRN PRN tablet 08/15/18 Albuterol IH (ProAir) [Proair Hfa (SP)Vent Pts] 2 puff INHALATION [id number] #1 inhaler 08/15/18 Prednisone 10 mg PO UD #30 tab 08/15/18 The following prescriptions were given: Prednisone 10 mg PO UD #30 tab Albuterol IH (ProAir) [Proair Hfa (SP)Vent Pts] 2 puff INHALATION [id number] #1 inhaler Primary Care Physician: Care Physician,No Primary [Primary Care Provider] - Test Results: Test results from this visit will be discussed in further detail at your follow- up appointment, if applicable. Please Follow Up With: Florentino Gant, DO When: in two weeks-bring your CPAP machine with you to your visit
[2018-08-15] MEDS: Acetaminophen 325 MG Tablet 650 MG PO (12:09)
[2018-08-15 14:13] VITALS: BP 139/87; PULSE 109; RESP 20; TEMP 36.7; O2SAT 94
--- NOTE | 2018-08-16 20:05 | PCM.DC.SUM ---
Discharge Date and Diagnosis Date of Admission: 08/14/18 Date of Discharge: 08/15/18 - Primary Discharge Diagnosis #1 acute exacerbation of asthma with hypoxia #2 rhinovirus tracheobronchitis #3 obstructive sleep apnea #4 hypokalemia #5 leukocytosis-probably secondary to tracheobronchitis Hospital Course and Treatment Operations: None Procedures: None Summary of Care Provided: The patient is a 32 year old M was seen in the emergency room at [facility] with chief complaint of shortness of breath. Patient also complained of green sputum production. Evaluation in the ER included a chest x-ray which was unremarkable, calcium was 3.4, pulse ox on room air during ambulation was 86%. Patient's white blood cell count was slightly elevated, on examination, patient had bilateral wheezing. Patient was placed and observation status on MedSurg 2, he was given aerosol treatments and IV Solu-Medrol, he was seen by pulmonary medicine who obtained a respiratory panel that was positive for rhinovirus. Patient's respiratory status stabilized, on 08/15/18, patient was seen and examined and felt to be in stable condition for discharge home Physical exam: On examination he appeared in good health and spirits. Vital signs as documented. Skin warm and dry and without overt rashes. Neck without JVD. Lungs-scattered expiratory wheezes are noted on the left, breath sounds are distant bilaterally, no rales or rhonchi was noted. Heart exam notable for regular rhythm, normal sounds and absence of murmurs, rubs or gallops. Abdomen unremarkable and without evidence of organomegaly, masses, or abdominal aortic enlargement. Extremities nonedematous. Neuro: Cranial nerves II through XII are grossly intact, no focal motor deficits were noted. Psych: Patient is alert and oriented x3, he does not appear anxious or depressed Patient was discharged home on 08/15/18. - Physical Exam Vital Signs Temp Pulse Resp BP Pulse Ox 98.0 F 109 H 20 H 139/87 H 94 08/15/18 14:13 08/15/18 14:13 08/15/18 14:13 08/15/18 14:13 08/15/18 14:13 Oxygen Flow Rate (L/min) 2 Oxygen Delivery Method Room Air Weight: 166 kg Body Mass Index (BMI) 60.9 Finger Stick Blood Glucose 104 Intake and Output for Last 24 Hours 08/14/18 08/15/18 08/16/18 23:59 23:59 23:59 Intake Total 1401 / 1401 490 / 490 Balance 1401 / 1401 490 / 490 Microbiology Past 72 Hours 08/14/18 13:14 Respiratory Panel (PCR) - Final Mucosa - Nose Rhinovirus Discharge Activity: Return to Normal Activity Return to work on:: 08/20/18 Weight Bearing Status: Full weight bearing Home Medications: Medications to take at Discharge Naproxen Sodium [Aleve] 220 mg PO Q8H PRN PRN 08/14/18 Acetaminophen [Tylenol Tablet] 650 mg PO Q6H PRN PRN tablet 08/15/18 Albuterol IH (ProAir) [Proair Hfa (SP)Vent Pts] 2 puff INHALATION [id number] #1 inhaler 08/15/18 Prednisone 10 mg PO UD #30 tab 08/15/18 Following Prescrptions Were Given to Patient: Prednisone 10 mg PO UD #30 tab Albuterol IH (ProAir) [Proair Hfa (SP)Vent Pts] 2 puff INHALATION [id number] #1 inhaler Primary Care Physician: Care Physician,No Primary [Primary Care Provider] - Please Follow Up With: Florentino Gant, DO When: in two weeks-bring your CPAP machine with you to your visit Disposition: Home Minutes spent on discharge:: 28 Patient Condition:: Stable Medical Necessity - Tobacco Use Smoking Status: Never smoker Tobacco Use: Non-smoker Meaningful Use Info Meaningful Use Diagnoses (Choose all that apply): None applicable Code Visit OBSV E&M: 10688 Observation care discharge
--- NOTE | 2018-08-16 20:09 | DS.PCM_ITS ---
Discharge Date and Diagnosis Date of Admission: 08/14/18 Date of Discharge: 08/15/18 - Primary Discharge Diagnosis #1 acute exacerbation of asthma with hypoxia #2 rhinovirus tracheobronchitis #3 obstructive sleep apnea #4 hypokalemia #5 leukocytosis-probably secondary to tracheobronchitis Hospital Course and Treatment Operations: None Procedures: None Summary of Care Provided: The patient is a 32 year old M was seen in the emergency room at [facility] with chief complaint of shortness of breath. Patient also complained of green sputum production. Evaluation in the ER included a chest x- ray which was unremarkable, calcium was 3.4, pulse ox on room air during ambulation was 86%. Patient's white blood cell count was slightly elevated, on examination, patient had bilateral wheezing. Patient was placed and observation status on MedSurg 2, he was given aerosol treatments and IV Solu-Medrol, he was seen by pulmonary medicine who obtained a respiratory panel that was positive for rhinovirus. Patient's respiratory status stabilized, on 08/15/18, patient was seen and examined and felt to be in stable condition for discharge home Physical exam: On examination he appeared in good health and spirits. Vital signs as documented. Skin warm and dry and without overt rashes. Neck without JVD. Lungs-scattered expiratory wheezes are noted on the left, breath sounds are distant bilaterally, no rales or rhonchi was noted. Heart exam notable for regular rhythm, normal sounds and absence of murmurs, rubs or gallops. Abdomen unremarkable and without evidence of organomegaly, masses, or abdominal aortic enlargement. Extremities nonedematous. Neuro: Cranial nerves II through XII are grossly intact, no focal motor deficits were noted. Psych: Patient is alert and oriented x3, he does not appear anxious or depressed Patient was discharged home on 08/15/18. - Physical Exam Vital Signs Temp Pulse Resp BP Pulse Ox 98.0 F 109 H 20 H 139/87 H 94 08/15/18 14:13 08/15/18 14:13 08/15/18 14:13 08/15/18 14:13 08/15/18 14:13 Oxygen Flow Rate (L/min) 2 Oxygen Delivery Method Room Air Weight: 166 kg Body Mass Index (BMI) 60.9 Finger Stick Blood Glucose 104 Intake and Output for Last 24 Hours 08/14/18 08/15/18 08/16/18 23:59 23:59 23:59 Intake Total 1401 / 1401 490 / 490 Balance 1401 / 1401 490 / 490 Microbiology Past 72 Hours 08/14/18 13:14 Respiratory Panel (PCR) - Final Mucosa - Nose Rhinovirus Discharge Activity: Return to Normal Activity Return to work on:: 08/20/18 Weight Bearing Status: Full weight bearing Home Medications: Medications to take at Discharge Naproxen Sodium [Aleve] 220 mg PO Q8H PRN PRN 08/14/18 Acetaminophen [Tylenol Tablet] 650 mg PO Q6H PRN PRN tablet 08/15/18 Albuterol IH (ProAir) [Proair Hfa (SP)Vent Pts] 2 puff INHALATION [id number] #1 inhaler 08/15/18 Prednisone 10 mg PO UD #30 tab 08/15/18 Following Prescrptions Were Given to Patient: Prednisone 10 mg PO UD #30 tab Albuterol IH (ProAir) [Proair Hfa (SP)Vent Pts] 2 puff INHALATION [id number] #1 inhaler Primary Care Physician: Care Physician,No Primary [Primary Care Provider] - Please Follow Up With: Florentino Gant, DO When: in two weeks-bring your CPAP machine with you to your visit Disposition: Home Minutes spent on discharge:: 28 Patient Condition:: Stable Medical Necessity - Tobacco Use Smoking Status: Never smoker Tobacco Use: Non-smoker Meaningful Use Info Meaningful Use Diagnoses (Choose all that apply): None applicable Code Visit OBSV E&M: 53245 Observation care discharge
== END 2018-08-15 14:20 | disposition home or self-care (01) ==
LOC: ED 07:14 → MS2 10:54
PROVIDERS: Admitting Provider Internal Medicine; Emergency Provider Emergency Medicine; Visit Provider Internal Medicine
DX: J45.901 Unspecified asthma with (acute) exacerbation (principal); R09.02 Hypoxemia; J20.6 Acute bronchitis due to rhinovirus; G47.33 Obstructive sleep apnea (adult) (pediatric); E87.6 Hypokalemia; Z23 Encounter for immunization; Z91.19 Patient's noncompliance with other medical treatment and regimen; E66.01 Morbid (severe) obesity due to excess calories; Z68.44 Body mass index [BMI] 60.0-69.9, adult; Z71.3 Dietary counseling and surveillance
CPT/HCPCS: 36415; 71045; 80048; 84484; 85025; 87633; 93005; 94640; 96361; 96374; 96376; 99218; 99283; J7030; 90686; A4216; G0378

== ENCOUNTER 2018-12-07 22:29 | Emergency (ER) | payer BC, SELFPAY ==
[2018-08-23 07:32] VITALS: BMI 60.7
[2018-12-07 22:29] VITALS: BP 139/90; PULSE 89; RESP 20; TEMP 37.2; O2SAT 94; BMI 59.9
--- NOTE | 2018-12-07 22:47 | RAD_ITS ---
STUDY: X-RAY CHEST REASON FOR EXAM: Male, 33 years old. Cough TECHNIQUE: Frontal and lateral views COMPARISON: August 14, 2018 FINDINGS: The lungs are clear and expanded. There is no demonstrated pleural abnormality. Normal size heart. Normal mediastinum and kenneth. Normal visualized pulmonary arteries. Normal visualized aortic arch and descending thoracic aorta. Degenerative changes of the visualized thoracic spine. Normal visualized ribs, clavicles, and shoulders. There is no demonstrated abnormality of the visualized soft tissue structures of the upper abdomen. RAD/Chest PA and Lateral IMPRESSION: Normal x-ray examination of the chest. Electronically Signed: Julio César Maxwell DO at 23:11 EST Tel [phone], Service support ,
--- NOTE | 2018-12-07 23:06 | ED.VISSUMM ---
- ER Visit Summary Date of Service: 12/07/18 Chief Complaint: Not feeling good History of Present Illness: The patient is a 33 M with a history of asthma otherwise healthy who has been ill for about 2 days. He complains of chills and sweats, no documented fever, he has checked his temperature at home. He complains of congestion rhinorrhea mild sore throat as well as sinus pressure. He complains of bilateral earaches. He has a nonproductive cough. He complains of feeling short of breath. No vomiting no diarrhea no chest or abdominal pain. Physical Examination: Afebrile vitals normal No apparent distress Oropharynx clear I do not appreciate erythema or uvular deviation. Tympanic membranes are normal. Moist mucous membranes Heart regular rate and rhythm Lungs are clear to auscultation I do not appreciate rales rhonchi wheezes Alert Test Results: Two-view chest x-ray is normal. Emergency Department Course and Treatment: Patient presents with a URI-like illness. Chest x-ray is normal. His lungs are clear. I do not believe this is acute asthma exacerbation. He was advised on supportive care. He understands to return for new or worsening symptoms. He was discharged. Treatment Plan: [] Disposition: Discharge Impression: URI This note was generated with [employer] dictation software. It may contain incorrect words, spelling, and punctuation that were not noted in review of the chart prior to signing ED Disposition - Plan for ED Patient: Referrals: Care Physician,No Primary [Primary Care Provider] -
--- NOTE | 2018-12-07 23:17 | ED.DEP ---
ED Disposition - Plan for ED Patient: Instructions: ED Upper Resp Infec No Abx Tx Referrals: Care Physician,No Primary [Primary Care Provider] -
[2018-12-07 23:27] VITALS: RESP 16
== END 2018-12-07 23:27 | disposition home or self-care (01) ==
LOC: ED 23:00
PROVIDERS: Emergency Provider Emergency Medicine
DX: J06.9 Acute upper respiratory infection, unspecified (principal); J45.909 Unspecified asthma, uncomplicated
CPT/HCPCS: 71046; 99282

== ENCOUNTER 2018-12-10 21:12 | Emergency (ER) | payer BC, SELFPAY ==
[2018-12-10 21:13] VITALS: BP 161/93; PULSE 108; RESP 20; TEMP 36.2; O2SAT 99; BMI 61.0
--- NOTE | 2018-12-10 21:34 | ED.VISSUMM ---
- ER Visit Summary Date of Service: 12/10/18 Chief Complaint: Cough History of Present Illness: The patient is a [address] Baljit Tejeda. He has a cough began 3 days ago. It is nonproductive. His has had similar symptoms. Patient has had subjective fever and chills. Reports he is short of breath with coughing only. He has right ear pain that is mild. He has a sore throat from coughing. Physical Examination: Vitals: Stable. Afebrile. General: Well-nourished and well-developed. Head: Normocephalic atraumatic. HEENT: Serous effusion on right. Left TM is normal. Neck: Supple, no lymphadenopathy. No JVD. Nontender. Cardiovascular: Regular rate and rhythm. No murmurs. Respiratory: No respiratory distress. Clear to auscultation bilaterally. Abdominal: Soft, nontender, nondistended, normal bowel sounds. No guarding, rebound, or peritoneal signs. Back: Nontender. Extremities: Nontender, no edema. Skin: Normal color, no rash. Neurologic: Alert and oriented ?3. Cranial nerves II through XII are intact. Normal strength and sensation. Psych: Normal affect. Test Results: Patient had a chest x-ray 2 days ago that was negative. This was not repeated. Emergency Department Course and Treatment: Patient reports that he has been wheezing at home. He is given a dose of prednisone here. Treatment Plan: Patient be discharged on a 5-day burst of prednisone. Instructed to use his albuterol MDI as prescribed. Follow-up Dr. Tejeda in 1 week if not improving. Return to the emergency department for any worsening symptoms. Disposition: To home in improved and stable condition. Impression: 1. URI. 2. Asthma. This note was generated with [employer] dictation software. It may contain incorrect words, spelling, and punctuation that were not noted in review of the chart prior to signing ED Disposition - Plan for ED Patient: Disposition: Home or Assisted Living Instructions: ED Upper Resp Infec No Abx Tx Prescriptions: Prednisone [Deltasone] 60 mg PO DAILY #15 tablet Referrals: Baljit Tejeda MD [STAFF PHYSICIAN] - Keep Carmen appointment
[2018-12-10] MEDS: predniSONE 20 MG Tablet 60 MG PO (21:41)
[2018-12-10 22:18] VITALS: RESP 18
== END 2018-12-10 22:18 | disposition home or self-care (01) ==
LOC: ED 21:41
PROVIDERS: Emergency Provider Emergency Medicine
DX: J06.9 Acute upper respiratory infection, unspecified (principal); J45.909 Unspecified asthma, uncomplicated
CPT/HCPCS: 99283

== ENCOUNTER 2019-01-21 14:33 | Emergency (ER) | payer BC, SELFPAY ==
[2019-01-21 14:34] VITALS: BP 162/103; PULSE 104; RESP 18; TEMP 36.3; O2SAT 96; BMI 61.2
--- NOTE | 2019-01-21 15:01 | EKG12_ITS ---
Test Reason : Blood Pressure : / mmHG Vent. Rate : 099 BPM Atrial Rate : 099 BPM P-R Int : 182 ms QRS Dur : 082 ms QT Int : 352 ms P-R-T Axes : 061 097 051 degrees QTc Int : 451 ms Normal sinus rhythm Rightward axis Borderline ECG Confirmed by EMILY NARAYAN, LAMINE ([id number]), supervising editor news reel FLAVIO BRANDT ([id number]) on 01/23/2019 9:27:01 AM Referred By: HANS Confirmed By:LAMINE DIAZ MD
--- NOTE | 2019-01-21 15:10 | RAD_ITS ---
STUDY: X-RAY CHEST REASON FOR EXAM: Male, 33 years old. Cough and shortness of breath. TECHNIQUE: PA and lateral views of the chest. COMPARISON: Comparison is made with prior study December 07, 2018. FINDINGS: EKG electrodes are seen. The lungs are clear and expanded. There is no demonstrated pleural abnormality. Normal size heart. Normal mediastinum and kenneth. Normal visualized pulmonary arteries. Normal visualized aortic arch and descending thoracic aorta. There are degenerative changes of the visualized thoracic spine. Normal visualized ribs, clavicles, and shoulders. There is no demonstrated abnormality of the visualized soft tissue structures of the upper abdomen. RAD/Chest PA and Lateral IMPRESSION: No acute abnormality is seen. Electronically Signed: Ki Kingsley, at 15:26 EDT , Service support ,
[2019-01-21] MEDS: 0.9% Normal Saline 1,000 ML 1000 ML IV (15:11)
[2019-01-21 15:13] LABS: Absolute Lymphocyte Count 2.46 X10^3/ul (0.83-4.51); Absolute Neutrophil Count 5.8 X10^3/uL (2.0-7.7); Basophil# 0.04 X10^3/uL; Basophil% 0.4 % (0-1); Eosinophil# 0.53 X10^3/uL; Eosinophils% 5.1 % (0-5); Hematocrit 44.7 % (40-54); Hemoglobin 14.3 g/dl (13.0-16.5); Lymphocyte # 2.46 X10^3/ul (4.0); Lymphocyte % 23.8 % (19-41); Mean Corpuscular Hgb 25.2 pg (27.0-32.0); Mean Corpuscular Volume 78.7 fL (80-94); Mean Platelet Vol. 9.5 fl (6.2-12.0); Monocyte# 1.46 X10^3/uL; Monocyte% 14.1 % (0-10); Neutrophil # 5.82 X10^3/uL (2.7-7.7); Neutrophil % 56.4 % (47-70); POSITIVE COUNT NO; POSITIVE DIFFERENTIAL NO; POSITIVE MORPHOLOGY NO; Platelet Count 351 K/mm3 (150-450); RBC Distribution Width CV 14.5 % (11.6-14.6); Red Blood Count 5.68 M/mm3 (4.6-6.2); White Blood Count 10.3 K/mm3 (4.4-11.0)
[2019-01-21 15:23] LABS: Anion Gap 4 (5-15); BUN 9 mg/dL (7-18); BUN/Creat Ratio 11.1 RATIO (10-20); Calcium,Total 8.5 mg/dL (8.5-10.1); Chloride 105 mmol/L (98-107); Creatinine, Serum 0.81 mg/dL (0.70-1.30); EST Glomerular Filtration Rate 117 mL/min (>60); Est Glom Filt Rate - Afr Amer 142 mL/min (>60); Estimated Creatinine Clearance 109.63 ml/min; Glucose 101 mg/dL (74-106); Potassium 3.6 mmol/L (3.5-5.1); Sodium Level 138 mmol/L (136-145)
--- NOTE | 2019-01-21 15:31 | ED.VISSUMM ---
- ER Visit Summary Date of Service: 01/21/19 Chief Complaint: Chest pain History of Present Illness: The patient is a 33 M who sees stephanie Bueno. He reports that he has chest pain that began 10 days ago. Some intermittent pain last approximately 10 minutes at a time. The episode today began approximately 30 minutes ago. Started while he was at rest. Is a sharp pain 7 out of 10 at worst and 2 out of 10 currently. Is worsened by coughing. Is unchanged with exertion, movement, or breathing. There is no radiation of the pain no associated nausea, vomiting, diaphoresis, shortness of breath. Patient reports that he saw his primary care physician for this and was told that he had had a prior UT based on his EKG and has an appointment to see a oil pump station operator chief at [facility] this week. Patient also reports that he has dental pain that began 2 days ago. He has an appointment to see his dentist tomorrow. He denies any fever or chills. Physical Examination: Vitals: Stable. Afebrile. General: Well-nourished and well-developed. Head: Normocephalic atraumatic. Dental: Pain with percussion of his right maxillary second molar. There is no focal abscess. No trismus. No edema of the floor of his mouth. No facial swelling. Neck: Supple, no lymphadenopathy. No JVD. Nontender. Cardiovascular: Regular rate and rhythm. No murmurs. Respiratory: No respiratory distress. Clear to auscultation bilaterally. Mild tenderness palpation over his chest that does reproduce his pain. Abdominal: Soft, nontender, nondistended, normal bowel sounds. No guarding, rebound, or peritoneal signs. Back: Nontender. Extremities: Nontender, no edema. Skin: Normal color, no rash. Neurologic: Alert and oriented ?3. Cranial nerves II through XII are intact. Normal strength and sensation. Psych: Normal affect. Test Results: EKG is sinus at 99 with Q waves in leads III and aVF. However, these Q waves were present on his last EKG in 2017. Troponin is negative. Chem-7 is normal. CBC is marked for monocytes of 14. Chest x-ray shows no acute disease. Emergency Department Course and Treatment: Patient with history of the dose of clindamycin p.o. He is resting comfortably. Treatment Plan: I discussed the patient the findings on his EKG are old. I feel that he is a suitable candidate for further outpatient evaluation. He will be discharged instructed to follow-up with his dentist tomorrow as previously scheduled follow-up with oil pump station operator chief later this week as previously scheduled. He will be placed on clindamycin at home. Return to the emergency department for any worsening symptoms. Disposition: To home in improved and stable condition. Impression: 1. URI. 2. Dental pain. 3. Atypical chest pain. This note was generated with [employer] dictation software. It may contain incorrect words, spelling, and punctuation that were not noted in review of the chart prior to signing ED Disposition - Plan for ED Patient: Disposition: Home or Assisted Living Instructions: ED Upper Resp Infec No Abx Tx, ED Tooth Pain Prescriptions: Clindamycin HCl [Cleocin] 300 mg PO Q6H #40 capsule Referrals: Dentist,Your [STAFF PHYSICIAN] - As soon as possible Gee Lam, [employer] [NON-STAFF] - 1 Week if not improving
[2019-01-21 15:37] VITALS: BP 136/83; PULSE 83; PULSE 92; RESP 18; RESP 19; TEMP 36.6; O2SAT 98
[2019-01-21] MEDS: Clindamycin HCl 150 MG Capsule 300 MG PO (15:37)
== END 2019-01-21 15:46 | disposition home or self-care (01) ==
LOC: ED 15:42
PROVIDERS: Emergency Provider Emergency Medicine
DX: J06.9 Acute upper respiratory infection, unspecified (principal); R07.89 Other chest pain; K08.89 Other specified disorders of teeth and supporting structures; J45.909 Unspecified asthma, uncomplicated
CPT/HCPCS: 71046; 80048; 84484; 85025; 93005; 99285; J7030; A4216

== ENCOUNTER 2019-12-01 16:11 | Emergency (ER) | payer OTHER, SELFPAY ==
[2019-12-01 16:11] VITALS: BP 158/92; PULSE 98; RESP 16; TEMP 36.6; O2SAT 99; BMI 63.1
--- NOTE | 2019-12-01 16:34 | ED.VIS.GEN ---
History of Present Illness Chief Complaint: Abscess Detail of Chief Complaint: Pilonidal cyst Informant: Patient Onset: Days Context: Gradual Onset Current Severity: Mild Maximum Severity: Moderate Narrative: Patient presents with recurrent pilonidal cyst. Over the past couple of days he has noted the area filling up with fluid again. No fevers or chills. No spontaneous drainage. Patient has had multiple I&D's of the area. He was told in the past he would likely require surgery, however has not been able to take enough time off work that would be required for recovery. - Past Medical History (1) TOMAS (obstructive sleep apnea) Status: Chronic Past Medical History - Allergies and Home Meds Allergies/Adverse Reactions: Allergies Penicillins Allergy (Unknown, Verified 12/01/19 16:15) Unknown Primary Care Physician: Gee Vann MD [NON-STAFF] - Prior records reviewed: Yes Surgical History: noncontributory Smoking Status: Current every day smoker - Family History Maternal Family History: Family History (Last Reviewed 08/24/18 @ 09:26 by HONORIO Mendoza) Father Diabetes Emphysema of lung Family History: Reports: No pertinent history Paternal Family History: Family History (Last Reviewed 08/24/18 @ 09:26 by HONORIO Mendoza) Father Diabetes Emphysema of lung Family History: Reports: COPD, Diabetes Review of Systems General: Denies: Chills, Fever Eyes: Denies: Visual changes - bilaterally ENT: Denies: Bilateral ear pain Cardiovascular: Denies: Chest pain Respiratory: Denies: Dyspnea, Cough Gastrointestinal: Denies: Abdominal pain, Nausea, Vomiting, Diarrhea Musculoskeletal: Denies: Swelling, Extremity Pain Skin: Reports: Abscess - Pilonidal cyst Neurological: Denies: Headache Allergy: Denies: Uticaria Physical Exam Vital Signs/Narrative: Vital Signs Temp Pulse Resp BP Pulse Ox 12/01/19 16:11 97.9 F 98 16 158/92 H 99 Inital Vital Signs reviewed: Yes General: Well nourished, Well developed Head: Normocephalic ENT: Moist mucous membranes Neck: Supple Cardiovascular: Regular rate, Regular rhythm Respiratory: No distress, CTA bilaterally Abdomen: Soft, Nontender Back: - - 6 x 3 cm pilonidal cyst just to the left of midline of the top gluteal cleft. No overlying erythema or sign of cellulitis. Skin: Normal color Neurological: Alert, Oriented x3 Psychological: Normal affect Diagnostic/Tx/Re-eval - Medical Decision Making Patient is consented for I&D. He is given p.o. clindamycin. Wound is anesthetized with 3 cc 1% lidocaine. Incision is made with a #11 blade. There is return of blood and pus. Loculations were broken up with curved hemostats. Wound is cleansed and quarter inch packing is placed. Patient remove the packing in 3 days. He has been seen by Dr. Velázquez in the past and will follow up with him. ED Disposition - Plan for ED Patient: Disposition: Home or Assisted Living Diagnosis: Pilonidal cyst with abscess Instructions: PILONIDAL CYST, Infected (Incision and Drainage) Prescriptions: Clindamycin [Cleocin] 300 mg PO 4X/DAY #80 capsule Referrals: Gee Vann MD [NON-STAFF] - Gee Velázquez MD [STAFF PHYSICIAN] - 1 Week
[2019-12-01] MEDS: Clindamycin HCl 150 MG Capsule 300 MG PO (16:57)
[2019-12-01] MEDS: Ondansetron ODT 4 MG Tablet PO (17:12)
[2019-12-01 17:24] VITALS: BP 155/97; RESP 18
== END 2019-12-01 17:27 | disposition home or self-care (01) ==
PROVIDERS: Emergency Provider Emergency Medicine
DX: L05.01 Pilonidal cyst with abscess (principal); G47.33 Obstructive sleep apnea (adult) (pediatric); F17.200 Nicotine dependence, unspecified, uncomplicated; Z88.0 Allergy status to penicillin
CPT/HCPCS: 10080; 99283